=== PATIENT | male | born 1975 | race Caucasian/White ===

== ENCOUNTER 2023-10-20 11:09 | Day surgery (SDC) | payer OTHER, MEDICAID, SELFPAY ==
[2023-10-16 08:23] VITALS: BMI 27.4
--- NOTE | 2023-10-20 | DI.RAD.S_ITS ---
PROCEDURE: XR ANKLE LT 2V INDICATIONS: TENDON DEBRIDEMENT AND REPAIR TECHNIQUE: 4 intraoperative views of the ankle were acquired. COMPARISON: [facility], CR, XR ANKLE 3 VIEWS WEIGHT BEARING LEFT, 08/09/2023, 10:27. FINDINGS: No fracture identified. No dislocation. IMPRESSION: Intraoperative guidance provided. Dictated by: Zach Richard M.D. on 10/20/2023 at 15:20 Approved by: Zach Richard M.D. on 10/20/2023 at 15:26
[2023-10-20] MEDS: LACTATED RINGERS 1,000 ML 42 ML IV (11:27)
[2023-10-20 11:40] VITALS: BP 149/112; PULSE 80; RESP 16; TEMP 36.5; O2SAT 95; BMI 27.4
[2023-10-20 11:58] VITALS: BMI 27.4
--- NOTE | 2023-10-20 12:09 | PM.HP.1 ---
History of Present Illness History of Present Illness Date Patient Seen: 10/20/23 Time Patient Seen: 12:12 Chief complaint: Left Ankle Narrative: Mr. Resendez is a 48-year-old male has had multiple ankle injuries including a significant ankle sprain May 13, 2023 when he stepped sideways rolled his ankle and endorses persistent now chronic swelling soreness and a sensation of instability. He is failed rehab. He has been unable to resume his normal activities. He rolls his ankle multiple times per day endorses chronic swelling and popping. He has an MRI that demonstrated tearing of the peroneus brevis tendon and tearing of the ATFL [facility] Social History Smoking Status: Never smoker alcohol intake: current Meds Home Medications and Allergies Home Medications Medication Instructions Recorded Confirmed Type escitalopram oxalate 20 mg tablet 20 mg PO DAILY 10/20/23 10/20/23 History trazodone 100 mg tablet 100 mg PO ONCE PM 10/20/23 10/20/23 History Allergies Allergy/AdvReac Type Severity Reaction Status Date / Time acetaminophen [From Tylenol] AdvReac Unknown Verified 10/20/23 11:49 Review of Systems Review of Systems ROS: Yes All systems reviewed with the patient and are negative except as otherwise documented Exam Vital Signs (past 8 hours): - 10/20/23 11:40 Temperature 97.7 F Pulse Rate 80 Respiratory Rate 16 Blood Pressure 149/112 H Pulse Oximetry 95 Oxygen Delivery Method Room Air Oxygen Delivery Method Room Air Narrative Exam Narrative: Alert oriented no acute distress. Heart regular rate and rhythm. Lungs clear to auscultation. Left lower extremity demonstrates increased anterior talar drawer and talar tilt. There is swelling and tenderness over the ATFL. Achilles tendon is palpable and intact. Tenderness over the peroneal tendons. No obvious subluxation or dislocation. Palpable pulses. Assessment & Plan Assessment and plan (1) Left ankle instability: Status: Acute (2) Peroneal tendon tear: Status: Acute Plan The patient is a 48-year-old male with chronic ankle instability and peroneal tendon tear. He is failed conservative treatment. He has been indicated for Brostrom lateral ankle ligament reconstruction and peroneal tendon repair versus tenodesis. Patient understands the risks benefits and alternatives of the procedure. Patient elects to proceed with surgery. The risks and benefits of the procedure have been discussed with the patient and given the opportunity to ask questions. The risks of surgery include but are not limited to infection, malunion, nonunion, persistence of pain, damage to nerves and blood vessels, posttraumatic arthritis, DVT, PE, cardiopulmonary complications and . The patient expressed a thorough understanding of the risks and benefits of surgery and has elected to proceed. Consent was signed in the office today. Quality VTE Deep Vein Thrombosis/Pulmonary Embolism Present on Admission: No
[2023-10-20] MEDS: CEFAZOLIN 2 GM/100 ML PREMIX 100 ML IV (12:30)
--- NOTE | 2023-10-20 12:30 | SUR.PREOP ---
Block start time [1213] . Monitoring initiated and maintained throughout procedure. Oxygen and medications given per anesthesiologist. Patient remained stable throughout procedure, no adverse reactions noted. Block end time [1220].
--- NOTE | 2023-10-20 12:30 | SUR.PREOP ---
timeout performed at 1212 prior to block with Jose Alfredo Duran CRNA and Alexsandra Wills RN present
--- NOTE | 2023-10-20 13:01 | SUR.OPER ---
Supine on padded OR bed, head on pillow, arms secured on padded arm boards at <90 degrees abduction, legs uncrossed, safety belt at waist.
[2023-10-20] MEDS: BUPIVACAINE 0.25% (PF) 30 ML, EPINEPHrine 0.15 MG INJ (13:30)
[2023-10-20 14:22] VITALS: BP 134/91; BP 137/86; PULSE 82; PULSE 88; RESP 16; TEMP 36.2; TEMP 36.8; O2SAT 100; O2SAT 99
[2023-10-20] MEDS: ALBUTEROL/IPRATROPIUM 3 ML AMPUL INH (14:27)
[2023-10-20 14:35] VITALS: BP 137/91; PULSE 78; RESP 16; TEMP 36.8; O2SAT 98
[2023-10-20 14:39] VITALS: BP 137/92; PULSE 84; RESP 16; TEMP 36.2; O2SAT 98
[2023-10-20 14:50] VITALS: BP 134/91; PULSE 92; RESP 16; TEMP 36.2; O2SAT 98
--- NOTE | 2023-10-20 17:03 | P.OP_ITS ---
Operative Date/Time/Diagnoses Date of procedure: 10/20/23 Time of procedure: 14:00 Pre-op diagnosis: Left ankle instability, peroneal tendon tear, peroneus brevis Post-op diagnosis: other (Left ankle instability, ATFL tear, CFL incompetence, peroneus brevis tendon tear, peroneus quartus, peroneal tenosynovitis) Procedure & Clinicians Procedure: 1. Left ankle modified Brostrom lateral ligament reconstruction CPT code 32674 2. Left ankle peroneal tendon repair peroneus brevis CPT code 13947 3. Debridement peroneus longus and peroneus brevis of tenosynovitis and excision peroneus quartus Same procedure as scheduled: Yes Indications: The patient is a 48-year-old male with longstanding chronic ankle instability and pain. He is failed non operative treatments. He was found to have a peroneal tendon tear and increased anterior drawer and incompetent ATFL. MRI demonstrated the peroneus brevis tear peroneal tenosynovitis and ATFL disr uption. He did not have any osteochondral lesions. He was indicated for Brostrom lateral ligament reconstruction and peroneal tendon debridement and repair as indicated. The risks and benefits of the procedure have been discussed with the patient and given the opportunity to ask questions. The risks of surgery include but are not limited to infection, persistence of pain, damage to nerves and blood vessels, posttraumatic arthritis, DVT, PE, cardiopulmonary complications and . The patient expressed a thorough understanding of the risks and benefits of surgery and has elected to proceed. Consent was signed in the office today. Surgeon: Yana Wiggins Click Yes if Unassisted: Yes Anesthesia Type: General, Peripheral nerve block and Local Operative Notes Findings: 1. ATFL disruption 2. Stretched and redundant CFL 3, extensive peroneus brevis and longus tenosynovitis 4. Longitudinal tear peroneus brevis tendon and low-lying muscle belly 6. Incidental peroneus quartus tendon Closure Type: primary Specimen(s): none sent Prosthetic devices, grafts, tissues, transplants, or devices: Arthrex 3.0 SutureTak Arthrex internal brace Estimated Blood Loss (mL): 20 Blood products transfused: none Tourniquet time (min): 60 Procedure in detail: Patient was seen in the preoperative area the site of surgery was marked informed consent confirmed. Regional block was placed by the anesthesia team for postoperative pain control. Patient was brought to the operating room with the anesthesia team positioned supine on operative table. General anesthetic was administered. An ipsilateral thigh bump was placed. An inferolateral tourniquet was placed and well-padded. All bony prominences well padded. An SCD was placed on the contralateral lower extremity. The left lower extremity was prepped and draped in standard sterile fashion a formal time-out procedure was performed confirming the patient's side and site of surgery administration of appropriate preoperative antibiotic. All were in agreement. Implants were in the room and accounted for. Esmarch was used for exsanguination the tourniquet raised on thigh to 250 mm of mercury. Attention was turned to the lateral ankle. There was an increased anterior drawer. A curvilinear lateral incision was taken along the peroneal tendons around the distal fibula and over the level of the ATFL towards the 4th metatarsal base. Dissection was taken through the skin subcutaneous tissues. Proximally the peroneal tendon sheath was opened and careful dissection of the peroneal tendon sheath distally was completed. The peroneal tendons were inspected. There was a long longitudinal backside tear of the peroneus brevis tendon. There was extensive adhesive tenosynovitis of the peroneus longus and brevis. There was also a low-lying muscle belly of the peroneus brevis tendon the tenosynovitis and low-lying muscle belly were debrided. Along the floor of the peroneal tendon sheath a peroneus quartus was identified and excised. Peroneus brevis tendon was then repaired in a tubularizing fashion with a 3-0 Vicryl suture in a running stitch. Deep to the peroneal tendons the CFL was visualized this was stretched and felt to be incompetent. Dissection was then carried anteriorly with a cuff of tissue taken off the distal fibula in the area of the ATFL rupture. Remaining ligament was quite thin. Given the poor quality of the ATFL and the patient's high demands this time I made the decision to reinforce the repair with an internal brace. Rongeur was used to prepare the distal fibula to bleeding bone and small cuff of periosteum was elevated from the distal fibula. 1x 3.0 SutureTak from Arthrex was used for the anatomic modified Brostrom this was drilled into the central physical insertion site for the ATFL along the distal fibula. And set aside. Next distally a small rent in the superficial retinaculum and ATFL allowed a guidewire placed down to the talus and a careful trajectory away from the joint line this was then advanced into the talus and checked on fluoroscopy for placement. This was then overdrilled with the Arthrex internal brace set for the 4.75 SwiveLock. This was then tapped and the 4.75 SwiveLock placed with the sutures coming up over the ATFL and superficial extensor retinaculum. The lateral aspect of the tibiotalar joint was visualized through the arthrotomy no osteochondral defect was visualized. Wound was irrigated. At this time a 2.0 drill was used over the distal fibula to make 2 small drill holes. And a blade was used to divide the CFL. A 2.0 FiberWire was then placed through the CFL and then brought through the drill holes in the distal fibula and tied over a bone bridge with the foot in neutral for the CFL reconstruction. Next the sutures from the 3.0 SutureTak were taken through the ATFL all 4 strands in a horizontal mattress fashion. The foot was then brought into dorsiflexion eversion and the sutures were tied for the modified Brostrom reconstruction. Next the 3.5 anchor hole for the internal brace was drilled into the fibula just above and lateral to the suture tack. This was tapped. Next Holding the foot in neutral the internal brace sutures were brought into the SwiveLock of the 3.5 anchor these were approximated to the drill hole on the fibula and a chastity was placed at the level of the anchor then the eyelet slid back to avoid over tightening. The eyelet was then placed in the hole with a small hemostat underneath the internal brace sutures and the suture anchor was advanced for the internal brace technique. Once this was secure the ankle was checked in a range of motion and in anterior drawer and talar tilt under live fluoroscopy and was stable. Suture ends were then cut. Tourniquet was released and hemostasis achieved. The wound was irrigated. Peroneal tendon sheath was closed with 2-0 Vicryl suture. Deep tissues were closed with 2-0 Vicryl suture. The superficial retinaculum was reinforced with 2-0 Vicryl sutures. Subcutaneous closure was with 4-0 Monocryl suture. And the skin was closed with 3-0 nylon suture. 0.25% Marcaine with epinephrine was injected for local anesthetic approximately 20 cc. Sterile dressings were placed with Xeroform gauze Webril and an Mejia wrap and a posterior and U stirrup splint. Patient was woken from anesthesia and taken to recovery room in good condition there no immediate complications with the procedure. All counts were correct. Complications: none Post-operative Condition: stable Disposition: PACU Plan for aftercare: Nonweightbearing 2 weeks in a splint and then start progressive weight-bearing 25% each week in a walking boot.. Aspirin 325 daily for DVT prophylaxis x6 weeks. Elevate heart level or above as much as possible 1st 2 weeks after surgery.
== END 2023-10-20 15:20 | disposition home or self-care (01) ==
PROVIDERS: Referring Provider Orthopaedic Surgery Foot and Ankle Surgery; Visit Provider Orthopaedic Surgery Foot and Ankle Surgery
PROC: (CPT 27698; principal; 2023-10-20 12:15)
DX: S86.312A Strain of muscle(s) and tendon(s) of peroneal muscle group at lower leg level, left leg, initial encounter (principal); M24.9 Joint derangement, unspecified; M25.372 Other instability, left ankle; G89.18 Other acute postprocedural pain; M65.9 Synovitis and tenosynovitis, unspecified
CPT/HCPCS: 27698; 27675; 64450; 73600; 76000; C1889; J0171; J0690; J1100; J1885; J2250; J2405; J2704; J3010

== ENCOUNTER 2023-11-01 03:34 | Emergency (ER) | payer OTHER, MEDICAID, SELFPAY ==
[2023-11-01 03:35] VITALS: BP 115/75; PULSE 68; RESP 16; TEMP 36.8; O2SAT 94; BMI 28.2
--- NOTE | 2023-11-01 03:48 | ED.PSYCH ---
HPI - Psych <Julien Chen MD - Last Filed: 11/06/23 14:36> General Chief Complaint: Toxicology Problem Stated Complaint: ETOH Time Seen by Provider: 11/01/23 03:38 History of Present Illness HPI Narrative: This is a 48-year-old male brought in by ambulance. History is obtained from EMS and law enforcement additionally. He was contacted by law enforcement and EMS secondary to being unresponsive in a grocery store parking lot. Apparently was difficult to arouse him although voice and flashing lights eventually did cause him to wake up and become cooperative. According to EMS the patient was talking about having the police shoot him and gesturing as if he was going to shoot himself. The patient denies suicidal or homicidal ideation here he also denies hearing voices. He endorses using alcohol, he denies using any other drugs although per EMS he would also used marijuana tonight. It does not appear that he has significant past medical history although he recently had a left ankle fracture and is still in a cast for this. The patient tells me that he did not have narcotic pain medications for his ankle fracture I can see where he had a prescription for oxycodone previously. He is also on Lexapro and trazodone. Related Data Home Medications Medication Instructions Recorded Confirmed escitalopram oxalate 20 mg tablet 20 mg PO DAILY 10/20/23 10/20/23 trazodone 100 mg tablet 100 mg PO ONCE PM 10/20/23 10/20/23 Previous Rx's Medication Instructions Recorded aspirin 325 mg tablet,delayed 325 mg PO DAILY #42 tabs 10/20/23 release oxycodone 5 mg tablet 5 mg PO Q4H PRN pain #30 tabs 10/20/23 Allergies Allergy/AdvReac Type Severity Reaction Status Date / Time acetaminophen [From Tylenol] AdvReac Unknown Verified 10/20/23 11:49 Patient History <Julien Chen MD - Last Filed: 11/06/23 14:36> Social History Smoking Status: Never smoker alcohol intake: current Smoking Status: Never smoker alcohol intake frequency: a few times a week Substance Use Type: does not use Exam <Julien Chen MD - Last Filed: 11/06/23 14:36> Narrative Exam Narrative: Patient is neatly dressed appears his stated age does not appear to be intoxicated. He is cooperative here. Initial Vital Signs Initial Vital Signs: Vital Signs Temperature 98.2 F 11/01/23 03:35 Pulse Rate 68 11/01/23 03:35 Respiratory Rate 16 11/01/23 03:35 Blood Pressure 115/75 11/01/23 03:35 Pulse Oximetry 94 11/01/23 03:35 Oxygen Delivery Method Room Air 11/01/23 03:35 HENUT Head: normocephalic and atraumatic Eyes Other: Pupils are normal size equal and reactive Neck Neck: supple Resp Effort & Inspection: normal respiratory effort Cardio Other: Normal heart rate Skin General: dry skin and warm Neuro Other: Alert oriented and cooperative moving all 4 extremities spontaneously and equally Psych Appearance: grossly normal Mental Status: mental status grossly normal Speech and Movement: other (Slightly slurred consistent with what is thought to be alcohol intoxication) Mood: congruent mood Affect: normal affect Thought Process: normal Thought Content: normal Judgment: judgment good <DO Veronica Colin Last Filed: 11/01/23 09:23> Initial Vital Signs Initial Vital Signs: Vital Signs Temperature 98.2 F 11/01/23 03:35 Pulse Rate 68 11/01/23 03:35 Respiratory Rate 16 11/01/23 03:35 Blood Pressure 115/75 11/01/23 03:35 Pulse Oximetry 94 11/01/23 03:35 Oxygen Delivery Method Room Air 11/01/23 03:35 Course <Julien Chen MD - Last Filed: 11/06/23 14:36> Orders Ordered: ED Orders 11/01/23 04:00 urine tox [Urine Drug Screen, Rapid] Stat 11/01/23 04:32 Ethanol (ETOH) Stat Vital Signs Vital signs: Vital Signs - 8 hr 11/01/23 03:35 11/01/23 07:20 11/01/23 09:12 Temperature 98.2 F 97.8 F Pulse Rate 68 69 Respiratory Rate 16 16 12 Blood Pressure 115/75 118/71 Pulse Oximetry 94 95 Oxygen Delivery Method Room Air Room Air <DO Veronica Colin Last Filed: 11/01/23 09:23> Orders Ordered: ED Orders 11/01/23 04:00 urine tox [Urine Drug Screen, Rapid] Stat 11/01/23 04:32 Ethanol (ETOH) Stat Vital Signs Vital signs: Vital Signs - 8 hr 11/01/23 03:35 11/01/23 07:20 11/01/23 09:12 Temperature 98.2 F 97.8 F Pulse Rate 68 69 Respiratory Rate 16 16 12 Blood Pressure 115/75 118/71 Pulse Oximetry 94 95 Oxygen Delivery Method Room Air Room Air MDM - Psych <Julien Chen MD - Last Filed: 11/06/23 14:36> Lab Data Labs: Lab Results 11/01/23 11/01/23 Range/Units 04:00 04:32 U Opiates 300ng/mL cut Negative (Negative) Ur Oxycodone Screen Negative (Negative) Urine Methadone Screen Negative (Negative) Ur Barbiturates Screen Negative (Negative) U Tricyclic Antidepress Negative (Negative) Ur Phencyclidine Scrn Negative (Negative) Ur Amphetamines Screen Positive H (Negative) U Methamphetamines Scrn Negative (Negative) Ur MDMA Scrn (Ecstasy) Negative (Negative) U Benzodiazepines Scrn Negative (Negative) Urine Cocaine Screen Negative (Negative) U Marijuana (THC) Screen Positive H (Negative) Urine pH Normal (Normal) Urine Specific [place] Normal (Normal) Ethyl Alcohol 342 H ( - 10) mg/dL Ur Creatinine Normal (Normal) <Salvatore Foley DO - Last Filed: 11/01/23 09:23> Lab Data Attestation: I reviewed the patient's lab results. Labs: Lab Results 11/01/23 11/01/23 Range/Units 04:00 04:32 U Opiates 300ng/mL cut Negative (Negative) Ur Oxycodone Screen Negative (Negative) Urine Methadone Screen Negative (Negative) Ur Barbiturates Screen Negative (Negative) U Tricyclic Antidepress Negative (Negative) Ur Phencyclidine Scrn Negative (Negative) Ur Amphetamines Screen Positive H (Negative) U Methamphetamines Scrn Negative (Negative) Ur MDMA Scrn (Ecstasy) Negative (Negative) U Benzodiazepines Scrn Negative (Negative) Urine Cocaine Screen Negative (Negative) U Marijuana (THC) Screen Positive H (Negative) Urine pH Normal (Normal) Urine Specific [place] Normal (Normal) Ethyl Alcohol 342 H ( - 10) mg/dL Ur Creatinine Normal (Normal) MDM Narrative Medical decision making narrative: Dr foley: Received turned over. Review patient's history and physical exam. He arrived intoxicated and also positive for amphetamines and marijuana on his UDS. This morning patient states that he is feeling much better. He does not quite remember the events of last evening but does know that he is at [facility] this morning. Denies suicidal ideation. He has a cast on his left lower extremity. He obviously has been walking on it given the where on the bottom of the cast. Review of his medical record shows that he had ankle surgery on 10/20/2023 and according to the note he was supposed to be nonweightbearing for 2 weeks. Patient is tolerating oral intake. Plan will be to discharge patient home with instructions to follow-up with the orthopedic surgeon. There was no indication for admission to the hospital and no indication for an involuntary admission. Will discharge patient home with follow-up. After my discharge patient stated to nursing staff that he did have thoughts of hurting himself but not currently. When I went to re-evaluate him for this he stated that he occasionally thinks that there isn't a ?purpose to live? he states that he would never act on it. He states that he would not want to hurt those that loved him to include other family members. He did contract for safety and stated that he would come back to the emergency department if he started to have these thoughts once again before hurting himself. Discharge Plan Departure Patient Disposition: Home Clinical Impression: Alcoholic intoxication Activity Restrictions/Additional Instructions: According to your medical record should be nonweightbearing on your left foot for 2 weeks after your surgery. Please keep all of your scheduled follow-up appointments with the orthopedic surgeon. No driving for the next 24 hours. Return to the emergency department for new symptoms. Prescriptions: No Action trazodone 100 mg tablet 100 mg PO ONCE PM escitalopram oxalate 20 mg tablet 20 mg PO DAILY oxycodone 5 mg tablet 5 mg PO Q4H PRN (Reason: pain) Qty: 30 0RF Rx Instructions: Postop exempt aspirin 325 mg tablet,delayed release (DR/EC) 325 mg PO DAILY Qty: 42 0RF Stand Alone Forms: Patient Portal/API
--- NOTE | 2023-11-01 04:10 | PC.NURSE ---
Pt clothing wet upon arrival to ED, Tech placed Pt in paper scrubs. Pt cooperative
[2023-11-01 04:26] LABS: Ur Creatinine Normal (Normal); Ur Specific Gravity Normal (Normal); Urine pH Normal (Normal)
[2023-11-01 04:27] LABS: UR Morphine/Opiate cutoff 300 Negative (Negative); Urine Amphetamines Positive (Negative); Urine Barbiturates Negative (Negative); Urine Benzodiazepines Negative (Negative); Urine Cocaine Negative (Negative); Urine MDMA Negative (Negative); Urine Methadone Negative (Negative); Urine Methamphetamines Negative (Negative); Urine Oxycodone Negative (Negative); Urine Phencyclidine Negative (Negative); Urine Tetrahydrocannabinol Positive (Negative); Urine Tricyclic Antidepressant Negative (Negative)
[2023-11-01 05:07] LABS: Ethanol (ETOH) 342 mg/dL
--- NOTE | 2023-11-01 07:17 | PC.NURSE ---
Patient is sleeping in bed with both bed rails up. The call light is attached to the bed rail.
[2023-11-01 07:20] VITALS: RESP 16
--- NOTE | 2023-11-01 08:40 | PC.NURSE ---
Pt reports not being able to locate his cell phone and unsure of where his keys are. I called [place] [employer] and after reading his notes for the call, staff states the report mentions locking some of his belongings in the car, and there was no mentions to a cell phone or pt's keys. [employer] states pt's car [place] [employer] [place].
--- NOTE | 2023-11-01 09:08 | PC.NURSE ---
Pt states he wanted to leave the ER on his own feet. Pt informed it is not safe to do so and was informed we need a responsible person to pick him up from the ER due to alcohol intoxication. He does not have his phone on him. After a few minutes he was able to remember his father, Trung's phone number (see demographics). Pt called his father who is coming to pick him up. I asked pt how he is feeling now, patient states i frequently think about hurting myself, but im not right now. I dont want to hurt anybody else or hurt my family by doing that. I lost everything. I used to have 3x houses, a , family, and now I'm losing it all. If I had a gun I would kill myself. I'm a Fk up, I'm my dad's only son. Please be gentle to my dad and dont tell him. Pt tearful in room. Pt informed we need to talk to his father when he arrives and patient expressed understanding. Provider notified of patient's statements.
[2023-11-01 09:12] VITALS: BP 118/71; PULSE 69; RESP 12; TEMP 36.6; O2SAT 95
== END 2023-11-01 09:48 | disposition home or self-care (01) ==
PROVIDERS: Emergency Medicine; Emergency Provider Emergency Medicine
DX: F10.129 Alcohol abuse with intoxication, unspecified (principal); F15.90 Other stimulant use, unspecified, uncomplicated; Y90.8 Blood alcohol level of 240 mg/100 ml or more
CPT/HCPCS: 80305; 80320; 99283